=== PATIENT | female | born 2005 | race Caucasian/White ===

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

== ENCOUNTER 2023-06-23 12:10 | Outpatient (CLI) | payer OTHER, SELFPAY ==
[2023-06-25 00:26] LABS: Bacterial Vaginosis by TMA Negative; Candida glabrata by TMA Negative; Candida species by TMA Negative; Trichomonas vaginalis by TMA Negative
== END 2023-06-23 12:11 | disposition home or self-care (01) ==
LOC: NFLDREF 12:14
PROVIDERS: Visit Provider Physician Assistant
DX: N89.8 Other specified noninflammatory disorders of vagina (principal)
CPT/HCPCS: 81513; 87481; 87661